=== PATIENT | female | born 2005 | race Two or more races ===

== ENCOUNTER → 2024-03-07 | Outpatient (CLI) | payer OTHER, SELFPAY ==
[2024-03-07 10:40] LABS: T4 (Thyroxine) 6.7 mcg/dL (4.5-10.9)
[2024-03-07 10:42] LABS: Vitamin D 25 Hydroxy Total 17.6 ng/mL (7.3-40.2)
[2024-03-07 10:45] LABS: Cardiac Risk Estimate 3.6 RATIO (3.7-5.6); Cholesterol 137 mg/dL (132-200); Free T4 (Free Thyroxine) 1.22 ng/dL (0.89-1.76); HDL Cholesterol 38 mg/dL (40-60); LDL Cholesterol,Calculated 80 mg/dL (0-130); Thyroid Stimulating Hormone 0.45 uIU/mL (0.55-4.78); Triglycerides 96 mg/dL (30-150)
== END | disposition home or self-care (01) ==
LOC: COPL 09:31
PROVIDERS: PCP Pediatrics; Referring Provider Pediatrics Pediatric Endocrinology; Visit Provider Pediatrics Pediatric Endocrinology
DX: E03.3 Postinfectious hypothyroidism (principal); E55.9 Vitamin D deficiency, unspecified; E78.5 Hyperlipidemia, unspecified
CPT/HCPCS: 36415; 80061; 82306; 84436; 84439; 84443; 84481

== ENCOUNTER → 2024-04-29 | Outpatient (CLI) | payer OTHER, SELFPAY ==
[2024-04-29 11:48] LABS: T4 (Thyroxine) 6.2 mcg/dL (4.5-10.9)
[2024-04-29 11:49] LABS: Free T4 (Free Thyroxine) 1.08 ng/dL (0.89-1.76); Thyroid Stimulating Hormone 1.89 uIU/mL (0.55-4.78)
== END | disposition home or self-care (01) ==
PROVIDERS: PCP Pediatrics Pediatric Endocrinology; Referring Provider Pediatrics Pediatric Endocrinology; Visit Provider Pediatrics Pediatric Endocrinology
DX: E03.3 Postinfectious hypothyroidism (principal)
CPT/HCPCS: 36415; 84436; 84439; 84443

== ENCOUNTER → 2024-06-08 | Outpatient (CLI) | payer OTHER, SELFPAY ==
--- NOTE | 2024-06-08 | XR_ITS ---
Examination: Pelvic ultrasound, transabdominal, complete Technique: Transabdominal ultrasound of the pelvis performed using grayscale imaging Date and time of exam: June 08, 2024 1255 hours INDICATIONS: Pelvic pain beginning 4 weeks ago FINDINGS: Uterus 7.2 cm endometrial stripe 0.8 cm No uterine mass or intrauterine gestation Right ovary 2.9 cm arterial flow Left ovary 3.4 cm arterial flow IMPRESSION: Negative study
--- NOTE | 2024-06-08 | XR_ITS ---
Examination: Abdomen AP single view Technique: AP portable supine abdomen, single view Exam date and time: June 08, 2024 1241 hours INDICATIONS: Constipation one month. FINDINGS: Large amounts of stool in the right and transverse colon No obstruction No free air IMPRESSION: Large amounts of stool in the right and transverse colon
[2024-06-08 13:46] LABS: HCG,Qualitative Serum Negative
[2024-06-08 14:41] LABS: Urea Breath Test Negative (Negative)
== END | disposition home or self-care (01) ==
LOC: CDIM 12:10
PROVIDERS: PCP Family Medicine; Referring Provider Nurse Practitioner Family; Visit Provider Nurse Practitioner Family
DX: K59.00 Constipation, unspecified (principal); K63.89 Other specified diseases of intestine
CPT/HCPCS: 36415; 74018; 76856; 83013; 83014; 84703

== ENCOUNTER 2024-06-14 11:13 | Inpatient (IN) | payer OTHER, SELFPAY ==
[2024-06-14 11:14] VITALS: BMI 28.1
[2024-06-14 11:25] VITALS: BP 117/78; PULSE 120; RESP 18; TEMP 38.2; O2SAT 99
--- NOTE | 2024-06-14 11:34 | XR_ITS ---
Examination: CT abdomen with intravenous contrast CT pelvis with intravenous contrast 2-D coronal reconstructions 2-D sagittal reconstructions Date and time of exam:June 14, 2024 1439 hours INDICATIONS: Generalized abdominal pain with nausea vomiting diarrhea beginning 2 months ago. CTDI: vol (mGy) 9.26 DLP: (mGycm) 528 Technique: Multiple axial sections of the abdomen and pelvis have been obtained. 64 slice high-resolution scanner used. 3 mm axial sections have been obtained, post intravenous injection 60 cc [id number] 2-D sagittal, coronal reconstructions obtained. Low dose protocols were performed. One or more of the following dose reduction techniques were used; automated exposure control, adjustment of the mA and/or KV according to patient size, use of iterative reconstruction technique. Findings: No focal liver or splenic lesions Contracted gallbladder No pancreatic mass No renal or ureteral calculi Aorta normal size The entire colon shows wall thickening and hyperemia Appendix is diagnostically visualized No bowel obstruction Small fat-containing umbilical hernia No pelvic mass Bladder intact Intact osseous structures IMPRESSION: Diffuse fairly severe nonspecific colitis pattern, differential would include ulcerative colitis, Crohn's disease
--- NOTE | 2024-06-14 11:36 | EDRME_ITS ---
Rapid Medical Screening Exam [facility] Arrival date/time: 06/14/24 11:13 18-year-old female presents to the emergency department today for complaint of a 1 month history of abdominal pain and intermittent bouts of diarrhea and constipation. Patient notably febrile and tachycardic Chief Complaint: Abdominal Pain Vital signs: Vital Signs Temperature 100.7 F H 06/14/24 11:25 Pulse Rate 120 H 06/14/24 11:25 Respiratory Rate 18 06/14/24 11:25 Blood Pressure 117/78 06/14/24 11:25 Pulse Oximetry (%) 99 06/14/24 11:25 Oxygen Delivery Method Room Air 06/14/24 11:25
[2024-06-14 12:01] LABS: Basophils # (Auto) 0.1 Thou/mm3 (0.0-0.2); Basophils % (Auto) 1 % (0-2.5); Eosinophils % (Auto) 9 % (0-10); Hematocrit 28.7 % (36.0-46.0); Immature Granulocytes % (Auto) 1 % (0-0); Immature Granulocytes Auto 0.07 Thou/mm3 (0.00-0.00); Lymphocytes % (Auto) 18 % (10-50); Mean Corpuscular HGB Conc 31.4 g/dl (31.0-37.0); Mean Corpuscular Hemoglobin 21.9 pg (25.0-35.0); Mean Corpuscular Volume 70 fL (80-100); Monocytes % (Auto) 9 % (0-12); Neutrophils % (Auto) 63 % (37-80); Nucleated Red Blood Cell % 0 /100 WBC (0); Platelet Count 562 Thou/mm3 (140-440); RDW Standard Deviation 45.4 fL (36.4-46.3); Red Blood Count 4.11 Miln/mm3 (4.00-5.20); White Blood Count 11.1 Thou/mm3 (4.5-11.0)
[2024-06-14 12:24] LABS: Alanine Aminotransferase 15 U/L (10-49); Albumin, Serum 4.4 gm/dL (3.5-5.0); Albumin/Globulin Ratio 1.4 (1.2-2.2); Alkaline Phosphatase 63 U/L (46-116); Anion Gap 7 (7-16); Aspartate Amino Transferase 12 U/L (0-34); Bilirubin,Total 0.6 mg/dL (0.3-1.2); Blood Urea Nitrogen < 5 mg/dL (9-23); Calcium 8.8 mg/dL (8.3-10.6); Calcium (Corrected) 8.8 mg/dL (8.5-10.1); Carbon Dioxide 26.6 mMol/L (20.0-31.0); Chloride 100 mMol/L (98-107); Globulin 3.2 gm/dL (2.3-3.5); Glucose 102 mg/dL (74-106); Lipase 25 U/L (12-53); Osmolality,Calculated 265 (275-295); Potassium 3.8 mMol/L (3.4-5.1); Sodium 134 mMol/L (136-145); Total Protein 7.6 gm/dL (5.7-8.2)
[2024-06-14 12:28] VITALS: TEMP 38.2
[2024-06-14] MEDS: ACETAMINOPHEN 500 MG TABLET 1000 MG PO (12:28)
[2024-06-14] MEDS: ONDANSETRON ODT 4 MG TABRAP PO (12:32)
[2024-06-14 12:36] LABS: BUN/Creatinine Ratio 6 Ratio (12-20); Creatinine (Component) 0.8 mg/dL (0.6-1.3); Estimated Creatinine Clearance 107.7 mL/min (>60); Procalcitonin 0.09 ng/ml (0.0-0.49); eGFR > 60 See Note
[2024-06-14 13:10] LABS: Collection Type, Urine Clean Catch
[2024-06-14 13:33] LABS: HCG Qualitative,Urine Negative
[2024-06-14 13:35] LABS: Bacteria,Urine Rare; Bilirubin,Urine Negative (Negative); Blood,Urine Negative (Negative); Clarity,Urine Clear (Clear/Hazy); Color,Urine Lt-Yellow (Lt Yel-Yel); Glucose, Urine Negative (Negative); Ketones,Urine Negative (Negative); Leukocyte Esterase,Urine Negative (Negative); Nitrite,Urine Negative (Negative); Protein,Urine Negative (Neg - Trace); RBC,Urine 2 /hpf (0-3); Specific Gravity,Urine 1.008 (1.001-1.035); Squamous Epithelial Cell,Urine < 1 /hpf (0-5); Urobilinogen,Urine Negative mg/dL (0.0-1.0); WBC,Urine 1 /hpf (0-5)
[2024-06-14 14:26] VITALS: BP 102/71; PULSE 97; RESP 16; TEMP 37.5; O2SAT 99
[2024-06-14] MEDS: SODIUM CHLORIDE 0.9% 1000 ML 1,000 ML 999 ML IV (14:30)
--- NOTE | 2024-06-14 15:53 | PD.EDABDPN ---
ED Abdominal Pain RME/HPI General Chief Complaint: Abdominal Pain Stated complaint: ABD. PAIN WITH VOMITING Time seen by provider: 06/14/24 15:24 Arrival date/time: 06/14/24 11:13 18-year-old female presents to the emergency department today for complaint of a 1 month history of abdominal pain and intermittent bouts of diarrhea and constipation. Patient notably febrile and tachycardic. There are no other associated symptoms or aggravating factors no other modifying factors, patient denies taking medication before coming to ER today Limitations: no limitations RME / HPI RME / HPI narrative: 06/14/24 11:13 18-year-old female presents to the emergency department today for complaint of a 1 month history of abdominal pain and intermittent bouts of diarrhea and constipation. Patient notably febrile and tachycardic Related Data Allergies Allergy/AdvReac Type Severity Reaction Status Date / Time No Known Allergies Allergy Verified 06/14/24 11:18 Review of Systems Review of Systems Systems Reviewed: All systems reviewed, normal except as documented Constitutional Constitutional: Reports system reviewed and no additional complaints, except as documented, Denies fever(s) and Denies headache(s) Eyes Eyes: Reports system reviewed and no additional complaints, except as documented and Denies blurry vision ENT Ears, Nose, Mouth, and Throat: Reports system reviewed and no additional complaints, except as documented, Denies headache(s), Denies nasal congestion and Denies nasal discharge Cardiovascular Cardiovascular: Reports system reviewed and no additional complaints, except as documented, Denies chest pain and Denies dyspnea Respiratory Respiratory: Reports system reviewed and no additional complaints, except as documented, Denies chest congestion, Denies cough and Denies dyspnea Gastrointestinal Gastrointestinal: Reports system reviewed and no additional complaints, except as documented, Reports abdominal pain, Reports hematochezia, Reports loose stools and Reports nausea Integumentary/Breasts Skin/Breast: Reports system reviewed and no additional complaints, except as documented and Denies rash Neurologic Neurologic: Reports system reviewed and no additional complaints, except as documented, Reports as per HPI and Denies headache(s) Past Medical History Past Medical History CARDIAC: Negative Cardiac Disorders RESPIRATORY: Negative Asthma GENITOURINARY: Negative Renal Disease ENDOCRINE: Negative Diabetes Mellitus Type 2 HEMATOLOGIC: Negative Sickle Cell Disease Social History SMOKING STATUS: Never smoker ED Exam General Limitations: Present no limitations General appearance: Present alert and in no apparent distress Head Head exam: Present atraumatic Eye Eye exam: Present normal appearance, PERRL and EOMI ENT ENT exam: Present normal exam, normal oropharynx and mucous membranes moist Neck Neck exam: Present normal inspection, full ROM and trachea midline Chest Chest inspection: Present normal inspection and symmetric chest wall rise Respiratory Respiratory exam: Present normal lung sounds bilaterally Cardiovascular Cardiovascular exam: Present regular rate, normal rhythm and normal heart sounds Abdominal Exam Abdominal exam: Present soft, tenderness (Nonspecific generalized abdominal) and normal bowel sounds; Absent distention, guarding, rebound or rigidity Extremities Exam Extremities exam: Present normal inspection and full ROM Back Exam Back exam: Present normal inspection and full ROM Neurological Exam Neurological exam: Present alert, oriented X3 and CN II-XII intact Psychiatric Psychiatric exam: Present normal affect and normal mood Skin Skin exam: Present warm, dry, intact and normal color Course Quality Measures none Orders Category Date Time Status COVID-19 Screening Questionnaire NOW Care 06/14/24 15:[address] Screening NOW Care 06/14/24 11:35 Active Decision to Admit X1 Care 06/14/24 15:49 Active Insert IV NOW Care 06/14/24 11:36 Active Consult to Gastroenterology Stat Cons 06/14/24 15:[address] abdomen pelvis w con Stat Exams 06/14/24 11:34 Completed Blood Culture (Lab) Stat Lab 06/14/24 11:40 Received C-Reactive Protein Stat Lab 06/14/24 11:45 Completed CBC Stat Lab 06/14/24 11:45 Completed Comprehensive Metabolic Panel Stat Lab 06/14/24 11:45 Completed HCG Qualitative,Urine Stat Lab 06/14/24 13:02 Completed Lactic Acid [Lactate (Lactic Acid)] Stat Lab 06/14/24 11:45 Completed Lipase Stat Lab 06/14/24 11:45 Completed Procalcitonin Stat Lab 06/14/24 11:45 Completed Stool Culture Stat Lab 06/14/24 11:35 Ordered Stool for WBCs Stat Lab 06/14/24 11:35 Ordered Urinalysis Stat Lab 06/14/24 13:02 Completed Urine Culture Stat Lab 06/14/24 13:02 Received c diff [Clostridium Difficile PCR] Stat Lab 06/14/24 Ordered Acetaminophen Tab [Tylenol ES Tab] Med 06/14/24 11:34 Discontinued 1,000 mg PO X1 ONE Ondansetron Odt [Zofran Odt] Med 06/14/24 12:29 Discontinued 4 mg PO X1 ONE Sodium Chloride 0.9% 1000 ml [Ns] 1,000 ml Med 06/14/24 11:34 Discontinued IV 999 mls/hr Vital Signs Vital signs: Vital Signs Temperature 100.7 F H 06/14/24 11:25 Pulse Rate 120 H 06/14/24 11:25 Respiratory Rate 18 06/14/24 11:25 Blood Pressure 117/78 06/14/24 11:25 Pulse Oximetry (%) 99 06/14/24 11:25 Oxygen Delivery Method Room Air 06/14/24 11:25 O2 saturation were 99% room air with normal limit Abdominal Pain MDM MDM Narrative MDM Narrative:: 18-year-old female presents to the emergency department today for complaint of a 1 month history of abdominal pain and intermittent bouts of diarrhea and constipation. Patient notably febrile and tachycardic. There are no other associated symptoms or aggravating factors no other modifying factors, patient denies taking medication before coming to ER today On exam despite the patient being tachycardic and febrile patient does not appear toxic. Lab work and imaging obtained patient hemoglobin is 9.0 CT scan consistent with diffuse colitis differentials including but not limited to Crohn's disease. Consultation: I spoke with Dr. Vera asked if the patient be admitted and he will consult on an inpatient basis 1555 PM: I spoke with Dr. salas who agrees to admit the patient I spoke with the residents inform them they should contact Dr. Vera for further orders Patient data External records reviewed:: [facility] previous records Clinical information provided by:: patient Social determinants that could affect healthcare access:: none Patient has the following chronic illnesses:: None How is presenting disease/condition affected by chronic disease/condition?: no chronic disease Evaluation data The following diagnostics were reviewed and interpreted by me:: lab results and radiology exam(s) Lab and/or radiology exams considered but not ordered:: Labs radiology obtain Interpretation Summary: Reviewed by me Medications / Prescriptions Medications or Prescriptions considered but not ordered:: Given Medication administrations:: Medication Administration History Acetaminophen (Acetaminophen 325 Mg Tablet) 650 mg PO Q6H PRN PRN Reason: Fever >101.5, PAIN 1-3 Stop: 07/14/24 16:28 Sodium Chloride (Ns) 1,000 mls @ 75 mls/hr IV .[id number] [facility] Stop: 07/14/24 16:29 Last Admin: 06/14/24 16:50 Dose: 75 mls/hr Documented By: PARIS Metronidazole (Flagyl 500 Mg Iv) 500 mg in 100 mls @ 200 mls/hr IV Q8HR [facility] Stop: 06/21/24 16:43 Ceftriaxone Sodium 2 gm/ (Sodium Chloride) 50 mls @ 100 mls/hr IV QDAY [facility] Stop: 06/21/24 16:44 Levothyroxine Sodium (Levothyroxine Sodium 100 Mcg Tablet) 100 mcg PO ACBR [facility] Stop: 07/15/24 05:59 Ondansetron HCl (Ondansetron Inj 2 Mg/Ml Inj 2 Ml) 4 mg IV Q6H PRN; Protocol PRN Reason: NAUSEA OR VOMITING Stop: 07/14/24 16:28 Pantoprazole Sodium (Pantoprazole Inj 40 Mg Vial) 40 mg IVP QDAY [facility] Stop: 07/15/24 08:59 Discontinued Medications Acetaminophen (Acetaminophen 500 Mg Tablet) 1,000 mg PO X1 ONE Stop: 06/14/24 11:35 Last Admin: 06/14/24 12:28 Dose: 1,000 mg Documented By: JESICA Sodium Chloride (Ns) 1,000 mls @ 999 mls/hr IV .Q1H1M ONE Stop: 06/14/24 12:34 Last Infusion: 06/14/24 15:37 Dose: Infused Documented By: Admin: 06/14/24 14:30 Dose: 999 mls/hr Documented By: PARIS Ondansetron HCl (Ondansetron Odt 4 Mg Tabrap) 4 mg PO X1 ONE; Protocol Stop: 06/14/24 12:30 Last Admin: 06/14/24 12:32 Dose: 4 mg Documented By: JESICA Polyethylene Glycol/Electrolytes (Na Styles/Nahco3/Nino/Peg (Golytely) 4,000 Ml Btl) 4,000 ml PO X1 ONE Stop: 06/14/24 16:34 Given Consultations Consultation(s) initiated? (list below): Yes Consultation #1 (Physician, Specialty, Details): Dr. Vera GI specialist Diagnosis Differential diagnosis abdominal pain: abdominal pain, acute appendicitis, gastroenteritis, pancreatitis and small bowel obstruction Most likely diagnosis given after review of the tests above:: Abdominal pain, colitis, blood in stool Admission Indicated Admission indicated?: indicated Admission Request Was there a request for admission?: Yes Admission Attestation Admission request attestation: Discussed case with [] from Hospitalist service regarding admission. Discussed patients ED course, exam findings, labs, and radiology results. The Hospitalist [agrees,declines] to accept the patient for admission. Disposition Plan Disposition Plan: Admit Discharge Plan Plan Patient Disposition: Admit Acute Care w/in Hospital Disposition Comment: Stable Problem List Clinical Impression: Abdominal pain, Blood in stool, Hemoglobin low, Diarrhea, Colitis PA/DIET TECHNICIAN REGISTERED Supervising Physician PA/DIET TECHNICIAN REGISTERED Supervising Physician: Dr crow
--- NOTE | 2024-06-14 16:40 | ESHP_ITS ---
<Statement entered by Onelia Davis MD - 06/19/24 15:39> I reviewed above note and agree with findings and plans. I have also personally examined the patient with medicine team and went over assessment and plan with medical team including contracts intern and resident physician. <Statement entered by Clay Fraga MD - 06/19/24 08:42> Senior Resident Attestation: I supervised/discussed management plan with contracts intern physician Dr. Alaniz, and was involved in the care of this patient. I personally saw and examined the patient and discussed the assessment and plan with the entire medicine team, including my attending. I agree with the assessment and plan as documented. Patient is a 18 years old female with PMH of hypothyroidism presented to the ED complaining of abdominal pain and bloody diarrhea ongoing for the past month and was admitted for IBD work up, GI was consulted. Patient's care was discussed with attending physician, Dr. Davis. Clay Fraga MD PGY-2. Documentation for date of: 06/14/24 HPI History of Present Illness History of present illness: Ms. Bullock is a [id number] with a past medical history significant for hypothyroidism who presents to the Emergency Department with complaints of abdominal pain and bloody diarrhea ongoing for the past month. She reports that her symptoms began with intermittent episodes of bloody diarrhea, which were subsequently followed by diffuse abdominal pain. She states that the symptoms have progressively worsened, with increased severity noted today. Over the course of the past month, she has experienced an unintentional weight loss of approximately 8 pounds. She denies nausea or vomiting but reports intermittent headaches that are relieved with dyuy-emb-gxkvnhz medications. She denies any prior similar episodes and affirms that these symptoms are new and began approximately one month ago. She reports no history of fever, though she has occasionally noticed night sweats. She denies chest pain, palpitations, dizziness, or syncope. The abdominal pain is described as diffuse and non- localized. She has not yet consulted a primary care provider for her current symptoms. However, she does report a history of chronic constipation for which she uses lactulose and MiraLAX. ED course In the ED blood pressure is 117/78, pulse 120, temperature is 100.7, patient saturating on room air Significant labs include WBC 11.1, hemoglobin 9.0, hematocrit 28.7, MCV 70, MCH 21.9, platelet 562, sodium 134, C-reactive protein 5.[address] of abdomen pelvis shows diffuse a fairly severe nonspecific colitis pattern In the ED patient was given 1 L bolus of fluids and Tylenol 1000 mg p.o. as well as Zofran x 1. ED placed a consult to Dr. Vera who has plans to perform colonoscopy and EGD PMH: Hypothyroidism PSH: None SH: none Home Meds: Levothyroxine 100mcg Exam Vital Signs Temp Pulse Resp BP Pulse Ox O2 Del Method 99.5 F 97 16 102/71 99 Room Air 06/14/24 14:06/14/24 14:06/14/24 14:06/14/24 14:06/14/24 14:06/14/24 14:26 Narrative Exam GENERAL: A&Ox3 . Awake, young cooperative female, Not in acute distress NEURO: no focal neurological deficits noted HEENT: Atraumatic, Normocephalic. mucous membranes moist. Eyes open, symmetrical, & clear HEART: Normal Heart Sounds LUNGS: Clear to auscultation with no wheezing or crackles. ABDOMEN: soft, non-distended, mild tender diffusely, bowel sounds heard, no guarding or rebound tenderness SKIN: No Rash or ecchymoses EXTREMITIES: No edema, tenderness, able to move all 4 extremities, pedal pulses palpated Results: Labs 06/17/24 04:58 06/17/24 04:58 Labs: Short CBC 06/14/24 Range/Units 11:45 WBC 11.1 H (4.5-11.0) Thou/mm3 Hgb 9.0 L (12.0-16.0) g/dL Hct 28.7 L (36.0-46.0) % Plt Count 562 H (140-440) Thou/mm3 BMP 06/14/24 11:45 Sodium 134 L Potassium 3.8 Chloride 100 Carbon Dioxide 26.6 BUN < 5 L Creatinine 0.8 Glucose 102 Calcium 8.8 Liver Function 06/14/24 Range/Units 11:45 Total Bilirubin 0.6 (0.3-1.2) mg/dL AST 12 (0-34) U/L ALT 15 (10-49) U/L Alkaline Phosphatase 63 (46-116) U/L Albumin 4.4 (3.5-5.0) gm/dL Urine 06/14/24 Range/Units 13:02 Urine Color Lt-Yellow (Lt Yel-Yel) Urine Clarity Clear (Clear/Hazy) Urine pH 6.0 (5.0-7.0) Ur Specific [place] 1.008 (1.001-1.035) Urine Protein Negative (Neg - Trace) Urine Glucose (UA) Negative (Negative) Quality Measures Quality Measures none Medications Home Medications and Allergies Allergies Allergy/AdvReac Type Severity Reaction Status Date / Time No Known Allergies Allergy Verified 06/14/24 11:18 Visit Medications Acetaminophen (Acetaminophen 325 Mg Tablet) 650 mg PO Q6H PRN PRN Reason: Fever >101.5, PAIN 1-3 Stop: 07/14/24 16:28 Sodium Chloride (Ns) 1,000 mls @ 75 mls/hr IV .[id number] [facility] Stop: 07/14/24 16:29 Levothyroxine Sodium (Levothyroxine Sodium 100 Mcg Tablet) 100 mcg PO QDAY [facility] Stop: 07/15/24 08:59 Ondansetron HCl (Ondansetron Inj 2 Mg/Ml Inj 2 Ml) 4 mg IV Q6H PRN; Protocol PRN Reason: NAUSEA OR VOMITING Stop: 07/14/24 16:28 Pantoprazole Sodium (Pantoprazole Inj 40 Mg Vial) 40 mg IVP QDAY [facility] Stop: 07/15/24 08:59 Discontinued Medications Acetaminophen (Acetaminophen 500 Mg Tablet) 1,000 mg PO X1 ONE Stop: 06/14/24 11:35 Last Admin: 06/14/24 12:28 Dose: 1,000 mg Sodium Chloride (Ns) 1,000 mls @ 999 mls/hr IV .Q1H1M ONE Stop: 06/14/24 12:34 Last Infusion: 06/14/24 15:37 Dose: Infused Ondansetron HCl (Ondansetron Odt 4 Mg Tabrap) 4 mg PO X1 ONE; Protocol Stop: 06/14/24 12:30 Last Admin: 06/14/24 12:32 Dose: 4 mg Polyethylene Glycol/Electrolytes (Na Styles/Nahco3/Nino/Peg (Golytely) 4,000 Ml Btl) 4,000 ml PO X1 ONE Stop: 06/14/24 16:34 Assessment & Plan Plan Ms. Bullock is a [id number] with a past medical history significant for hypothyroidism who presents to the Emergency Department with complaints of abdominal pain and bloody diarrhea ongoing for the past month. She reports that her symptoms began with intermittent episodes of bloody diarrhea, which were subsequently followed by diffuse abdominal pain. She states that the symptoms have progressively worsened, with increased severity noted today. Over the course of the past month, she has experienced an unintentional weight loss of approximately 8 pounds. #Diffuse colitis with bloody diarrhea #Concerning for IBD #Microcytic anemia - Patient complains of abdominal pain with bloody diarrhea, in the ER patient is febrile, weight loss and WBC is 11.1 - Hemoglobin 9.0, hematocrit 28.7, MCV 70 CT of the abdomen pelvis: Diffuse fairly severe nonspecific colitis pattern Plan: -GI specialist Dr. Vera consulted, appreciate recommendations - N.p.o. for EGD and colonoscopy GoLytely prep ordered - As needed pain control with Tylenol - Zofran as needed - Pantoprazole ordered -Rocephin plus Flagyl started 06/14- -iron panel plus ferritin ordered for morning labs -Maintenance fluids ordered as patient is n.p.o. -will continue to monitor daily CBC #Hypothyroidism - Resumed home levothyroxine 100 mcg - TSH ordered for a.m. labs Health Maintenance Disposition: Medsurg for colonoscopy and EGD DVT Prophylaxis: SCD QSHIFT GI Prophylaxis: Pantoprozol-40 IV Qday Diet: NPO for colonoscopy and EGD Lines: Peripheral lines Code status: Full Assessment and plan discussed with my senior resident Dr. Fraga & attending physician Dr. Ryan Alaniz (PGY-1)- Internal medicine resident
[2024-06-14] MEDS: SODIUM CHLORIDE 0.9% 1000 ML 1,000 ML 75 ML IV (16:50)
[2024-06-14 18:25] VITALS: BP 99/65; PULSE 82; RESP 17; RESP 18; TEMP 37.3; O2SAT 99
--- NOTE | 2024-06-14 18:31 | PC.NURSE ---
nurse to nurse verbal report given to Madhavi. Patient will be transported to [facility] room 369. No questions or concerns at this time.
--- NOTE | 2024-06-14 18:55 | PC.NURSE ---
patient transferred to [facility] via wheelchair by staff at 1856. Accompanied by both parents.
[2024-06-14] MEDS: cefTRIAXone 2 GM in SODIUM CHLORIDE 0.9% (Popper) 50 ML IV (19:31)
--- NOTE | 2024-06-14 19:39 | PC.NURSE ---
1832 Nurse report from ED nurse. Phone disconnected half way through report. Received another call at 18:42 to finish nurse to nurse report. Patient arrived on the floor 18:59. Hand off report given to Juan Francisco JAVIER.
[2024-06-14 19:45] LABS: Iron 12 mcg/dL (50-170); Percent Iron Saturation 3 % (20-55); Total Iron Binding Capacity 331 mcg/dL (250-425); Unsaturated Iron Binding 319 (225-295)
[2024-06-14 19:52] LABS: Ferritin 11 ng/mL (7.3-270.7)
[2024-06-14 20:00] VITALS: BP 102/77; PULSE 85; RESP 18; TEMP 36.7; O2SAT 100; BMI 29.5
[2024-06-14] MEDS: metroNIDAZOLE/NS 500 MG IVPB 500 MG/100 ML BAG 200 MG IV (20:33)
[2024-06-14] MEDS: NA SU/NAHCO3/KC/PEG (Golytely) 4,000 ML BTL 4000 ML PO (20:45)
--- NOTE | 2024-06-14 22:10 | PC.NURSE ---
RN was called into the room by pt who stated that she was unable to tolerate oral consumption of the 4 liter Golytely; previous this RN had informed pt that some pt's are not able to consume solution orally and that an NG Tube was an alternative available- although discomfort may occur at time of insertion and for the duration it is kept in place. Pt now requesting the tube to be placed. Informed pt that such intervention required a physician's order but would make such request to the physician tooth cutter contact wheel if needed. Encouraged pt to reattempt consuming solution orally after taking a half hour break. At which point, we would revisit the NG Tube alternative if pt was unable to.
--- NOTE | 2024-06-14 22:45 | PC.NURSE ---
Pt reports discomfort from drinking Golytely. Pt is requesting NG Tube placement for the administration of the remaining Golytely solution. Will inform MD of pt's request.
[2024-06-15] VITALS (13 sets, daily range): BP systolic 94–134; BP diastolic 55–82; PULSE 90–112; RESP 16–24; TEMP 36.2–37.7; O2SAT 94–100; BMI 29.5
--- NOTE | 2024-06-15 00:05 | PC.NURSE ---
NG Tube successfully inserted, 12 Fr, but upon completion of insertion, pt requested for the tube to be removed. Explained to pt that the difficult part was over with and that allowing placement of the tube we can administer the remaining Golytely. Pt refused to keep NG Tube in place; pt stated, no, I want it out . Proceeded to remove NG Tube per pt request. Informed pt and mother at bedside that the only way to proceed with the Colonoscopy would be for her to drink the remaining Golytely. Pt and mother both verbalized understanding.
[2024-06-15] MEDS: LEVOTHYROXINE SODIUM 100 MCG TABLET PO (05:30)
[2024-06-15] MEDS: SODIUM CHLORIDE 0.9% 1000 ML 1,000 ML 75 ML IV ×2 (05:30→21:34)
[2024-06-15] MEDS: metroNIDAZOLE/NS 500 MG IVPB 500 MG/100 ML BAG 200 MG IV ×3 (05:30→21:35)
[2024-06-15 06:16] LABS: Basophils # (Auto) 0.1 Thou/mm3 (0.0-0.2); Basophils % (Auto) 1 % (0-2.5); Eosinophils # (Auto) 0.7 Thou/mm3 (0.0-0.5); Eosinophils % (Auto) 6 % (0-10); Immature Granulocytes % (Auto) 1 % (0-0); Immature Granulocytes Auto 0.08 Thou/mm3 (0.00-0.00); Lymphocytes # (Auto) 1.6 Thou/mm3 (1.0-5.0); Lymphocytes % (Auto) 14 % (10-50); Mean Corpuscular HGB Conc 30.8 g/dl (31.0-37.0); Mean Corpuscular Hemoglobin 21.8 pg (25.0-35.0); Mean Corpuscular Volume 71 fL (80-100); Monocytes % (Auto) 9 % (0-12); Neutrophils # (Auto) 7.9 Thou/mm3 (1.8-7.7); Neutrophils % (Auto) 70 % (37-80); Nucleated Red Blood Cell % 0 /100 WBC (0); Platelet Count 478 Thou/mm3 (140-440); RDW Standard Deviation 46.9 fL (36.4-46.3); Red Blood Count 3.67 Miln/mm3 (4.00-5.20); White Blood Count 11.3 Thou/mm3 (4.5-11.0)
[2024-06-15 06:45] LABS: Alanine Aminotransferase 12 U/L (10-49); Albumin, Serum 3.5 gm/dL (3.5-5.0); Albumin/Globulin Ratio 1.2 (1.2-2.2); Alkaline Phosphatase 60 U/L (46-116); Anion Gap 10 (7-16); Aspartate Amino Transferase 13 U/L (0-34); BUN/Creatinine Ratio 7 Ratio (12-20); Bilirubin,Total 0.4 mg/dL (0.3-1.2); Blood Urea Nitrogen < 5 mg/dL (9-23); Calcium (Corrected) 8.4 mg/dL (8.5-10.1); Carbon Dioxide 24.4 mMol/L (20.0-31.0); Chloride 107 mMol/L (98-107); Creatinine (Component) 0.7 mg/dL (0.6-1.3); Estimated Creatinine Clearance 125.8 mL/min (>60); Glucose 98 mg/dL (74-106); Magnesium 1.8 mg/dL (1.6-2.6); Osmolality,Calculated 278 (275-295); Phosphorous 3.3 mg/dL (2.4-5.1); Potassium 3.6 mMol/L (3.4-5.1); Sodium 141 mMol/L (136-145); Thyroid Stimulating Hormone 7.99 uIU/mL (0.55-4.78); Total Protein 6.5 gm/dL (5.7-8.2); eGFR > 60 See Note
[2024-06-15 08:00] LABS: Stool for WBCs Negative (Negative)
[2024-06-15 08:33] LABS: Procalcitonin 0.09 ng/ml (0.0-0.49)
[2024-06-15 08:46] LABS: Clostridium Difficile PCR Negative (Negative)
[2024-06-15] MEDS: bisacodyL 5 MG TABEC 20 MG PO ×2 (08:59→12:58)
[2024-06-15] MEDS: PANTOPRAZOLE INJ 40 MG VIAL IVP (08:59)
[2024-06-15] MEDS: cefTRIAXone 2 GM in SODIUM CHLORIDE 0.9% (Popper) 50 ML IV (09:00)
[2024-06-15] MEDS: ACETAMINOPHEN 325 MG TABLET 650 MG PO (09:28)
--- NOTE | 2024-06-15 14:30 | PD.IMCONS ---
HPI Data of Consult Requesting Physician: Onelia Davis MD Primary Care Provider: Elisa Wood NP Consult Narrative History of present illness: Pt is a 18-year-old female with a past medical history significant for hypothyroidism with complaints of abdominal pain and bloody diarrhea ongoing for the past month. She reports that her symptoms began with intermittent episodes of bloody diarrhea, which were subsequently followed by diffuse abdominal pain. She states that the symptoms have progressively worsened, with increased severity noted today with weight loss. No acute distress. cc:: cc: Onelia Davis MD Review of Systems Review of Systems Narrative Review of Systems: reviewed Meds Home Medications and Allergies Allergies Allergy/AdvReac Type Severity Reaction Status Date / Time No Known Allergies Allergy Verified 06/14/24 11:18 Exam Vital Signs Temp Pulse Resp BP Pulse Ox O2 Del Method 99.9 F 112 H 17 111/77 94 L Room Air 06/15/24 08:00 06/15/24 08:00 06/15/24 08:00 06/15/24 08:00 06/15/24 08:00 06/15/24 08:00 Routine Abdominal Exam Comments: soft, tender mildly Results Labs 06/15/24 05:10 06/15/24 05:10 Labs: Short CBC 06/15/24 Range/Units 05:10 WBC 11.3 H (4.5-11.0) Thou/mm3 Hgb 8.0 L (12.0-16.0) g/dL Hct 26.0 L (36.0-46.0) % Plt Count 478 H D (140-440) Thou/mm3 BMP 06/15/24 05:10 Sodium 141 Potassium 3.6 Chloride 107 Carbon Dioxide 24.4 BUN < 5 L Creatinine 0.7 Glucose 98 Calcium 8.0 L Liver Function 06/15/24 Range/Units 05:10 Total Bilirubin 0.4 (0.3-1.2) mg/dL AST 13 (0-34) U/L ALT 12 (10-49) U/L Alkaline Phosphatase 60 (46-116) U/L Albumin 3.5 D (3.5-5.0) gm/dL Assessment and Plan Additional Assessment & Plan Additional Plan: 18-year-old female with a past medical history significant for hypothyroidism with complaints of abdominal pain and bloody diarrhea ongoing for the past month. She reports that her symptoms began with intermittent episodes of bloody diarrhea, which were subsequently followed by diffuse abdominal pain. She states that the symptoms have progressively worsened, with increased severity noted today with weight loss Fecal calprotectin EGD and colonoscopy Will follow based on results
--- NOTE | 2024-06-15 14:34 | PC.SS ---
Rounding note: Pt is a 18 yo female, who is pending a colonoscopy. At this time there is no d/c date.
--- NOTE | 2024-06-15 14:45 | PC.SS ---
1130-Bundle Tier And Labeler attempted to complete a face to face initial assessment with the pt; however, when entering the room, pts mother stated the pt was using the restroom and asked for privacy. Bundle Tier And Labeler was unable to complete the initial assessment. SS to complete initial assessment.
[2024-06-15 15:58] LABS: INR 1.1 (0.9-1.3); Prothrombin Time 12.2 Seconds (9.0-12.2)
--- NOTE | 2024-06-15 16:03 | ESPR_ITS ---
<Statement entered by Onelia Davis MD - 06/17/24 08:14> I reviewed above note and agree with findings and plans. I have also personally examined the patient with medicine team and went over assessment and plan with medical team including rn internship and resident physician. <Statement entered by Krishna Mcgraw MD - 06/16/24 06:15> patient seen an assessed at bedside this morning. patient states she is feeling better today compared to when she first came in. patient is taking go-lightly for colonoscopy later today. Dr. Vera following. case discussed with team. Krishna Mcgraw [id number] Documentation for date of: 06/15/24 Subjective Subjective Interval history: No acute overnight. Patient seen and examined at bedside this morning. Patient is undergoing GoLytely prep for colonoscopy scheduled today as well as EGD. Patient states that she has been bowel movements denies any melena or hematochezia. Patient also states her abdominal pain has mildly improved. Patient has no other complaints. TSH in a.m. labs 7.99 and we will increase her home dose of levothyroxine from 100-112.5 Iron panel is consistent with iron deficiency anemia. Patient will need to be started on ferrous sulfate every other day upon discharge. Patient may benefit from IV iron during hospitalization. Exam Vital Signs Temp Pulse Resp BP Pulse Ox O2 Del Method 97.1 F 92 18 110/71 97 Room Air 06/15/24 12:00 06/15/24 12:00 06/15/24 12:00 06/15/24 12:00 06/15/24 12:00 06/15/24 12:00 Narrative Exam GENERAL: A&Ox3 . Awake, young cooperative female, Not in acute distress NEURO: no focal neurological deficits noted HEENT: Atraumatic, Normocephalic. mucous membranes moist. Eyes open, symmetrical, & clear HEART: Normal Heart Sounds LUNGS: Clear to auscultation with no wheezing or crackles. ABDOMEN: soft, non-distended, mild tender diffusely, bowel sounds heard, no guarding or rebound tenderness SKIN: No Rash or ecchymoses EXTREMITIES: No edema, tenderness, able to move all 4 extremities, pedal pulses palpated Objective Labs 06/15/24 05:10 06/15/24 05:10 Labs: Laboratory Results - last 24 hr 06/14/24 06/15/24 06/15/24 11:45 01:00 05:10 WBC 11.3 H RBC 3.67 L Hgb 8.0 L Hct 26.0 L MCV 71 L MCH 21.8 L MCHC 30.8 L RDW Std Deviation 46.9 H Plt Count 478 H D Neut % (Auto) 70 Lymph % (Auto) 14 [place] % (Auto) 9 Eos % (Auto) 6 Baso % (Auto) 1 Neut # (Auto) 7.9 H Lymph # (Auto) 1.6 [place] # (Auto) 1.0 H Eos # (Auto) 0.7 H Baso # (Auto) 0.1 Immature Gran # (Auto) 0.08 H Absolute Nucleated RBC 0.00 Immature Gran % 1 H Nucleated RBC % 0 PT INR Sodium 141 Potassium 3.6 Chloride 107 Carbon Dioxide 24.4 Anion Gap 10 BUN < 5 L Creatinine 0.7 Estim Creat Clear Calc 125.8 eGFR > 60 BUN/Creatinine Ratio 7 L Glucose 98 Calculated Osmolality 278 Calcium 8.0 L Corrected Calcium 8.4 L Phosphorus 3.3 Magnesium 1.8 Iron 12 L TIBC 331 Iron Saturation 3 L Unsat Iron Binding 319 H Ferritin 11 Total Bilirubin 0.4 AST 13 ALT 12 Alkaline Phosphatase 60 Total Protein 6.5 Albumin 3.5 D Globulin 3.0 Albumin/Globulin Ratio 1.2 Procalcitonin 0.09 TSH 7.99 H Stool for White Cells Negative Stl C. diff Tox B Gene Negative 06/15/24 15:21 WBC RBC Hgb Hct MCV MCH MCHC RDW Std Deviation Plt Count Neut % (Auto) Lymph % (Auto) [place] % (Auto) Eos % (Auto) Baso % (Auto) Neut # (Auto) Lymph # (Auto) [place] # (Auto) Eos # (Auto) Baso # (Auto) Immature Gran # (Auto) Absolute Nucleated RBC Immature Gran % Nucleated RBC % PT 12.2 INR 1.1 Sodium Potassium Chloride Carbon Dioxide Anion Gap BUN Creatinine Estim Creat Clear Calc eGFR BUN/Creatinine Ratio Glucose Calculated Osmolality Calcium Corrected Calcium Phosphorus Magnesium Iron TIBC Iron Saturation Unsat Iron Binding Ferritin Total Bilirubin AST ALT Alkaline Phosphatase Total Protein Albumin Globulin Albumin/Globulin Ratio Procalcitonin TSH Stool for White Cells Stl C. diff Tox B Gene Quality Measures Quality Measures none Assessment & Plan Assessment Current Active Medications: Generic Name Dose Route Start Last Admin Trade Name Freq PRN Reason Stop Dose Admin Acetaminophen 650 mg 06/14/24 16:29 06/15/24 09:28 Acetaminophen 325 Mg Tablet PO 07/14/24 16:28 650 mg Q6H PRN Administration Fever >101.5, PAIN 1-3 Sodium Chloride 1,000 mls @ 75 mls/hr 06/14/24 16:30 06/15/24 05:30 Ns IV 07/14/24 16:29 75 mls/hr .[id number] ELBA Administration Metronidazole 500 mg in 100 mls @ 200 mls/hr 06/14/24 16:44 06/15/24 14:16 Flagyl 500 Mg Iv IV 06/21/24 16:43 200 mls/hr Q8HR ELBA Administration Ceftriaxone Sodium 2 gm/ 50 mls @ 100 mls/hr 06/14/24 16:45 06/15/24 09:00 Sodium Chloride IV 06/21/24 16:44 100 mls/hr QDAY ELBA Administration Levothyroxine Sodium 112 mcg 06/16/24 06:00 Levothyroxine Sodium 112 Mcg Tablet PO 07/16/24 05:59 ACBR ELBA Ondansetron HCl 4 mg 06/14/24 16:29 Ondansetron Inj 2 Mg/Ml Inj 2 Ml IV 07/14/24 16:28 Q6H PRN NAUSEA OR VOMITING Protocol Pantoprazole Sodium 40 mg 06/15/24 09:00 06/15/24 08:59 Pantoprazole Inj 40 Mg Vial IVP 07/15/24 08:59 40 mg QDAY ELBA Administration Plan Ms. Bullock is a 18-year-old female with a past medical history significant for hypothyroidism who presents to the Emergency Department with complaints of abdominal pain and bloody diarrhea ongoing for the past month. She reports that her symptoms began with intermittent episodes of bloody diarrhea, which were subsequently followed by diffuse abdominal pain. She states that the symptoms have progressively worsened, with increased severity noted today. Over the course of the past month, she has experienced an unintentional weight loss of approximately 8 pounds. #Diffuse colitis with bloody diarrhea #Concerning for IBD #Microcytic anemia - Patient complains of abdominal pain with bloody diarrhea, in the ER patient is febrile, weight loss and WBC is 11.1 - Hemoglobin 9.0, hematocrit 28.7, MCV 70 CT of the abdomen pelvis: Diffuse fairly severe nonspecific colitis pattern Plan: -GI specialist Dr. Vera consulted, appreciate recommendations - N.p.o. for EGD and colonoscopy GoLytely prep ordered - As needed pain control with Tylenol - Zofran as needed - Pantoprazole ordered -Rocephin plus Flagyl started 06/14- -Maintenance fluids ordered as patient is n.p.o. -will continue to monitor daily CBC #Iron deficiency anemia -Hemoglobin 8.0, hematocrit 26.0, MCV 71 -Iron panel: Iron 12, TIBC 331, iron saturation 3, unsaturated iron binding 319, ferritin 11 -Patient will need to take ferrous sulfate every other day on discharge #Hypothyroidism - TSH 7.99 therefore increased home levothyroxine to 112.5mcg Health Maintenance Disposition: Medsurg for colonoscopy and EGD DVT Prophylaxis: SCD QSHIFT GI Prophylaxis: Pantoprozol-40 IV Qday Diet: NPO for colonoscopy and EGD Lines: Peripheral lines Code status: Full Assessment and plan discussed with my senior resident Dr. Mcgraw & attending physician Dr. Ryan Alaniz (PGY-1)- Internal medicine resident
[2024-06-15] MEDS: RINGERS LACTATED 1000 ML 1,000 ML 125 ML IV (18:12)
--- NOTE | 2024-06-15 19:10 | SUR.PHASEI ---
pt received to [facility]. sleepy but arousable. vss. breathing even and unlabored. report from dr welch and nurse avelina.
--- NOTE | 2024-06-15 19:45 | SUR.PHASEI ---
pt transported to room via gurney. vss. breathing even and unlabored. pt awake and oriented. no co pain or nausea. passing gas. report called to [facility].
[2024-06-15 22:21] LABS: Hepatitis A Antibody IgM Non Reactive (Non React); Hepatitis B Core Antibody IgM Non Reactive (Non React); Hepatitis B Surface Antigen Non Reactive (Non React); Hepatitis C Antibody Non Reactive (Non React)
[2024-06-16] VITALS (9 sets, daily range): BP systolic 106–112; BP diastolic 59–68; PULSE 75–107; RESP 16–99; TEMP 36.2–37.1; O2SAT 97–99; BMI 29.5
[2024-06-16 00:15] LABS: Hematocrit 26.3 % (36.0-46.0)
[2024-06-16 00:26] LABS: Hemoglobin 8.2 g/dL (12.0-16.0)
[2024-06-16] MEDS: HYDROcodone/APAP 5/325 TABLET 1 TAB PO (00:38)
[2024-06-16] MEDS: metroNIDAZOLE/NS 500 MG IVPB 500 MG/100 ML BAG 200 MG IV (05:22)
[2024-06-16] MEDS: MG HYD/AL HYD/SIME (Maalox Reg) SUSP 30 ML UDC PO (05:22)
[2024-06-16] MEDS: PANTOPRAZOLE INJ 40 MG VIAL IVP (05:24)
[2024-06-16] MEDS: LEVOTHYROXINE SODIUM 112 MCG TABLET PO (05:24)
[2024-06-16 05:44] LABS: HIV (1&2) Antibody Rapid Non-Reactive
[2024-06-16 05:58] LABS: Basophils # (Auto) 0.1 Thou/mm3 (0.0-0.2); Basophils % (Auto) 1 % (0-2.5); Eosinophils # (Auto) 0.8 Thou/mm3 (0.0-0.5); Eosinophils % (Auto) 9 % (0-10); Hematocrit 24.2 % (36.0-46.0); Immature Granulocytes % (Auto) 1 % (0-0); Immature Granulocytes Auto 0.08 Thou/mm3 (0.00-0.00); Lymphocytes # (Auto) 2.2 Thou/mm3 (1.0-5.0); Lymphocytes % (Auto) 26 % (10-50); Mean Corpuscular HGB Conc 31.4 g/dl (31.0-37.0); Mean Corpuscular Hemoglobin 21.8 pg (25.0-35.0); Mean Corpuscular Volume 70 fL (80-100); Monocytes # (Auto) 0.7 Thou/mm3 (0.0-0.8); Monocytes % (Auto) 8 % (0-12); Neutrophils % (Auto) 56 % (37-80); Nucleated Red Blood Cell % 0 /100 WBC (0); Platelet Count 436 Thou/mm3 (140-440); Quantiferon-TB* See Sep Rpt; RDW Standard Deviation 45.5 fL (36.4-46.3); Red Blood Count 3.48 Miln/mm3 (4.00-5.20); White Blood Count 8.8 Thou/mm3 (4.5-11.0)
[2024-06-16 06:06] LABS: Hemoglobin 7.6 g/dL (12.0-16.0)
[2024-06-16 06:42] LABS: Alanine Aminotransferase 9 U/L (10-49); Albumin, Serum 3.3 gm/dL (3.5-5.0); Albumin/Globulin Ratio 1.3 (1.2-2.2); Alkaline Phosphatase 57 U/L (46-116); Anion Gap 11 (7-16); Aspartate Amino Transferase < 10 U/L (0-34); BUN/Creatinine Ratio 7 Ratio (12-20); Bilirubin,Total 0.4 mg/dL (0.3-1.2); Blood Urea Nitrogen < 5 mg/dL (9-23); Calcium 7.9 mg/dL (8.3-10.6); Calcium (Corrected) 8.5 mg/dL (8.5-10.1); Chloride 108 mMol/L (98-107); Creatinine (Component) 0.7 mg/dL (0.6-1.3); Estimated Creatinine Clearance 125.8 mL/min (>60); Globulin 2.6 gm/dL (2.3-3.5); Glucose 97 mg/dL (74-106); Magnesium 1.8 mg/dL (1.6-2.6); Osmolality,Calculated 280 (275-295); Phosphorous 3.9 mg/dL (2.4-5.1); Potassium 3.3 mMol/L (3.4-5.1); Sodium 142 mMol/L (136-145); Total Protein 5.9 gm/dL (5.7-8.2); eGFR > 60 See Note
[2024-06-16] MEDS: cefTRIAXone 2 GM in SODIUM CHLORIDE 0.9% (Popper) 50 ML IV (08:47)
[2024-06-16] MEDS: POTASSIUM CHLORIDE 20 mEq TABCR 40 MEQ PO (08:47)
--- NOTE | 2024-06-16 09:41 | EKG_ITS ---
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
[2024-06-16 09:51] LABS: Sed Rate (ESR) 37 mm/hr (0-20)
[2024-06-16 09:55] LABS: C-Reactive Protein 6.5 mg/dL (0.0-0.9); Prealbumin < 5.0 mg/dL (10.0-40.0)
[2024-06-16] MEDS: ACETAMINOPHEN 325 MG TABLET 650 MG PO ×2 (10:07→20:53)
[2024-06-16] MEDS: predniSONE 20 MG TABLET 40 MG PO (10:08)
[2024-06-16] MEDS: ONDANSETRON INJ 2 MG/ML INJ 2 ML 4 MG IV (10:09)
--- NOTE | 2024-06-16 10:30 | PC.NURSE ---
Per pts family will like to hold off on iron for now made MD lynch aware. Education provided this morning in regards for the need and h/h levels by md Valdes.
[2024-06-16 11:53] LABS: Hematocrit 23.4 % (36.0-46.0)
[2024-06-16 12:09] LABS: Hemoglobin 7.4 g/dL (12.0-16.0)
--- NOTE | 2024-06-16 14:04 | PD.IMPROG ---
Documentation for date of: 06/16/24 Subjective Subjective Interval history: EGD showed GEJ polyp removed Colonoscopy UC vs. Crohn's colitis Exam Vital Signs Temp Pulse Resp BP Pulse Ox O2 Del Method 98.3 F 80 18 111/67 98 Room Air 06/16/24 12:00 06/16/24 12:00 06/16/24 12:00 06/16/24 12:00 06/16/24 12:00 06/16/24 12:00 Routine Abdominal Exam Comments: soft, mildly tender Objective Labs 06/16/24 10:40 06/16/24 04:50 Labs: Laboratory Results - last 24 hr 06/15/24 06/15/24 06/16/24 15:21 23:51 04:50 WBC 8.8 RBC 3.48 L Hgb 8.2 L 7.6 L Hct 26.3 L 24.2 L MCV 70 L MCH 21.8 L MCHC 31.4 RDW Std Deviation 45.5 Plt Count 436 D Neut % (Auto) 56 Lymph % (Auto) 26 [place] % (Auto) 8 Eos % (Auto) 9 Baso % (Auto) 1 Neut # (Auto) 5.0 Lymph # (Auto) 2.2 [place] # (Auto) 0.7 Eos # (Auto) 0.8 H Baso # (Auto) 0.1 Immature Gran # (Auto) 0.08 H Absolute Nucleated RBC 0.00 Immature Gran % 1 H Nucleated RBC % 0 ESR 37 H PT 12.2 INR 1.1 Sodium 142 Potassium 3.3 L Chloride 108 H Carbon Dioxide 23.0 Anion Gap 11 BUN < 5 L Creatinine 0.7 Estim Creat Clear Calc 125.8 eGFR > 60 BUN/Creatinine Ratio 7 L Glucose 97 Calculated Osmolality 280 Calcium 7.9 L Corrected Calcium 8.5 Phosphorus 3.9 Magnesium 1.8 Total Bilirubin 0.4 AST < 10 ALT 9 L Alkaline Phosphatase 57 C-Reactive Prot, Quant 6.5 H Total Protein 5.9 Albumin 3.3 L Globulin 2.6 Albumin/Globulin Ratio 1.3 Prealbumin < 5.0 L Hepatitis A IgM Ab Non Reactive Hep Bs Antigen Non Reactive Hep B Core IgM Ab Non Reactive Hepatitis C Antibody Non Reactive HIV 1&2 Antibody Rapid Non-Reactive 06/16/24 10:40 WBC RBC Hgb 7.4 L Hct 23.4 L MCV MCH MCHC RDW Std Deviation Plt Count Neut % (Auto) Lymph % (Auto) [place] % (Auto) Eos % (Auto) Baso % (Auto) Neut # (Auto) Lymph # (Auto) [place] # (Auto) Eos # (Auto) Baso # (Auto) Immature Gran # (Auto) Absolute Nucleated RBC Immature Gran % Nucleated RBC % ESR PT INR Sodium Potassium Chloride Carbon Dioxide Anion Gap BUN Creatinine Estim Creat Clear Calc eGFR BUN/Creatinine Ratio Glucose Calculated Osmolality Calcium Corrected Calcium Phosphorus Magnesium Total Bilirubin AST ALT Alkaline Phosphatase C-Reactive Prot, Quant Total Protein Albumin Globulin Albumin/Globulin Ratio Prealbumin Hepatitis A IgM Ab Hep Bs Antigen Hep B Core IgM Ab Hepatitis C Antibody HIV 1&2 Antibody Rapid Assessment & Plan A&P Narrative 18-year-old female with a past medical history significant for hypothyroidism with complaints of abdominal pain and bloody diarrhea ongoing for the past month. She reports that her symptoms began with intermittent episodes of bloody diarrhea, which were subsequently followed by diffuse abdominal pain. She states that the symptoms have progressively worsened, with increased severity noted today with weight loss Fecal calprotectin PPI bid Prednisone 40 mg once a day Follow gi thursday Follow labs and stool study Follow path Needs to repeat EGD in 8 weeks Needs biologics D/w family and pt and in agreement Time Spent With Patient Time: Total time spent is greater than 50% in coordination of care (as documented) at patient's floor/unit and/or counseling patient:
--- NOTE | 2024-06-16 14:19 | PD.RESPRO ---
Documentation for date of: 06/16/24 Subjective Subjective Interval history: Patient was seen examined at bedside this morning. Overnight patient had 1 bloody bowel movement. She underwent EGD and colonoscopy yesterday. EGD showed some gastritis with erythema, but no bleeding. Colonoscopy showed diffuse inflammation in the sigmoid colon, rectosigmoid colon, transverse colon, descending colon, and ascending colon. Patient's WBCs have not up trended and she has not spiked any fevers. Discontinue patient's Flagyl and will continue with Rocephin for now. GI specialist placed the patient on prednisone 40 mg daily until she's seen at his office and wanted patient to be started on diet which was started already. Will switch patient's Protonix to p.o. 40 twice daily. Possible discharge in the next 24 to 48 hours. Exam Vital Signs Temp Pulse Resp BP Pulse Ox O2 Del Method 98.3 F 80 18 111/67 98 Room Air 06/16/24 12:00 06/16/24 12:00 06/16/24 12:00 06/16/24 12:00 06/16/24 12:06/16/24 12:00 Narrative Exam General: A/O x3, no acute distress Eyes: PERRL, EOMI. Anicteric, vision grossly intact. Ears: No ear pain, no ear discharge, Hearing grossly intact. Nose: No nasal discharge. Mouth/Throat: Moist mucous membranes, no redness, no lesions. Neck: Neck supple, non-tender, no cervical lymphadenopathy. Lungs: Clear KEYUR to auscultation and percussion, No accessory muscle use. Cardio: Normal S1/S2, regular rhythm, no murmurs, no JVD Abdomen: Soft, tender in left side, no palpable masses, peristalsis present, no guarding or rebound. Extremities: Symmetrical, no significant deformities, no peripheral edema , non-tender, peripheral pulses presents. Skin: No rashes, no lesions, warm to touch. Neuro: No focal neurological deficits. motor and sensory intact Objective Labs 06/17/24 04:58 06/17/24 04:58 Labs: Laboratory Results - last 24 hr 06/15/24 06/15/24 06/16/24 15:21 23:51 04:50 WBC 8.8 RBC 3.48 L Hgb 8.2 L 7.6 L Hct 26.3 L 24.2 L MCV 70 L MCH 21.8 L MCHC 31.4 RDW Std Deviation 45.5 Plt Count 436 D Neut % (Auto) 56 Lymph % (Auto) 26 [place] % (Auto) 8 Eos % (Auto) 9 Baso % (Auto) 1 Neut # (Auto) 5.0 Lymph # (Auto) 2.2 [place] # (Auto) 0.7 Eos # (Auto) 0.8 H Baso # (Auto) 0.1 Immature Gran # (Auto) 0.08 H Absolute Nucleated RBC 0.00 Immature Gran % 1 H Nucleated RBC % 0 ESR 37 H PT 12.2 INR 1.1 Sodium 142 Potassium 3.3 L Chloride 108 H Carbon Dioxide 23.0 Anion Gap 11 BUN < 5 L Creatinine 0.7 Estim Creat Clear Calc 125.8 eGFR > 60 BUN/Creatinine Ratio 7 L Glucose 97 Calculated Osmolality 280 Calcium 7.9 L Corrected Calcium 8.5 Phosphorus 3.9 Magnesium 1.8 Total Bilirubin 0.4 AST < 10 ALT 9 L Alkaline Phosphatase 57 C-Reactive Prot, Quant 6.5 H Total Protein 5.9 Albumin 3.3 L Globulin 2.6 Albumin/Globulin Ratio 1.3 Prealbumin < 5.0 L Hepatitis A IgM Ab Non Reactive Hep Bs Antigen Non Reactive Hep B Core IgM Ab Non Reactive Hepatitis C Antibody Non Reactive HIV 1&2 Antibody Rapid Non-Reactive 06/16/24 10:40 WBC RBC Hgb 7.4 L Hct 23.4 L MCV MCH MCHC RDW Std Deviation Plt Count Neut % (Auto) Lymph % (Auto) [place] % (Auto) Eos % (Auto) Baso % (Auto) Neut # (Auto) Lymph # (Auto) [place] # (Auto) Eos # (Auto) Baso # (Auto) Immature Gran # (Auto) Absolute Nucleated RBC Immature Gran % Nucleated RBC % ESR PT INR Sodium Potassium Chloride Carbon Dioxide Anion Gap BUN Creatinine Estim Creat Clear Calc eGFR BUN/Creatinine Ratio Glucose Calculated Osmolality Calcium Corrected Calcium Phosphorus Magnesium Total Bilirubin AST ALT Alkaline Phosphatase C-Reactive Prot, Quant Total Protein Albumin Globulin Albumin/Globulin Ratio Prealbumin Hepatitis A IgM Ab Hep Bs Antigen Hep B Core IgM Ab Hepatitis C Antibody HIV 1&2 Antibody Rapid Quality Measures Quality Measures none Assessment & Plan Assessment Current Active Medications: Generic Name Dose Route Start Last Admin Trade Name Freq PRN Reason Stop Dose Admin Acetaminophen 650 mg 06/14/24 16:29 06/16/24 10:07 Acetaminophen 325 Mg Tablet PO 07/14/24 16:28 650 mg Q6H PRN Administration Fever >101.5, PAIN 1-3 Hydrocodone Bitart/Acetaminophen 1 tab 06/15/24 23:20 06/16/24 00:38 Hydrocodone/Apap 5/325 Tablet PO 06/20/24 23:19 1 tab Q6HR PRN Administration Pain 4-10 Sodium Chloride 1,000 mls @ 75 mls/hr 06/14/24 16:30 06/15/24 21:34 Ns IV 07/14/24 16:29 75 mls/hr .[id number] ELBA Administration Ferric Sodium Gluconate 125 mg 110 mls @ 110 mls/hr 06/16/24 10:00 06/16/24 14:05 / Sodium Chloride IV 07/16/24 09:59 Not Given QDAY ELBA Ceftriaxone Sodium/Dextrose 1 gm in 50 mls @ 100 mls/hr 06/17/24 09:00 Rocephin/D5w 1gm Iv Premix IV 06/24/24 08:59 QDAY ELBA Levothyroxine Sodium 112 mcg 06/16/24 06:00 06/16/24 05:24 Levothyroxine Sodium 112 Mcg Tablet PO 07/16/24 05:59 112 mcg ACBR ELBA Administration Ondansetron HCl 4 mg 06/14/24 16:29 06/16/24 10:09 Ondansetron Inj 2 Mg/Ml Inj 2 Ml IV 07/14/24 16:28 4 mg Q6H PRN Administration NAUSEA OR VOMITING Protocol Pantoprazole Sodium 40 mg 06/16/24 21:00 Pantoprazole 40 Mg Tablet PO 07/16/24 20:59 BID ELBA Prednisone 40 mg 06/16/24 09:30 06/16/24 10:08 Prednisone 20 Mg Tablet PO 07/16/24 09:29 40 mg QDAY ELBA Administration Plan 18-year-old female with past medical history of hypothyroidism was admitted to the hospital 06/14/2024 due to diffuse colitis with hematochezia and concerns for IBD. #Diffuse colitis #Hematochezia #IBD? #Gastritis Patient was having 1 month of abdominal pain with diarrhea that was mostly bloody prior to coming in. Patient had 1 more episode of bloody diarrhea last night. Colonoscopyshowed diffuse inflammation in the sigmoid colon, rectosigmoid colon, transverse colon, descending colon, and ascending colon. EGD showed some gastritis with erythema, but no bleeding. Plan: Protonix 40 mg twice daily Prednisone 40 mg daily until she is seen by GI specialist as an outpatient Pending stool cultures, Helicobacter pylori antigen in the stool, C. difficile, calprotectin in the stool, and blood cultures Pending pathology report GI specialist consulted, appreciate recommendations #Iron deficiency anemia Hemoglobin today 7.6 iron on repeat was 7.4 Could be due to iron deficiency as well as blood loss in the stool Plan: GI specialist ordered IV Ferrlecit 125 mg IV daily Patient will most likely benefit from ferrous sulfate every other day Will repeat hemoglobin if patient does have another bloody bowel movement #UTI Patient's UA was positive Urine Cx grew GNR Plan: Continue Rocephin #Hypothyroidism Patient's TSH came back elevated at 7.99 Plan: Continue levothyroxine 112 mcg Disposition: Patient admitted for possible IBD Diet: vegetarian GI prophylaxis: protonix DVT prophylaxis: not indicated in the setting of hematochezia Code: full code Case disclosed with Attending Dr. Alisson Jaime PGY1 Attending Provider Attestation/Addendum I reviewed labs, imaging, EKG, home medications and prior available records. Face to face evaluation was performed by me. I have personally examined the patient and discussed assessment and plan with the IM team. I reviewed the resident note and agree with the plan with exceptions as below. Lower GI bleed Possible Crohn's disease Acute esophagitis/gastritis Colitis Acute UTI Status post EGD that showed esophagitis/gastritis. Continue PPI twice daily Status post colonoscopy that showed significant colitis with a pattern concerning for Crohn's disease. S/p biopsy. Discussed with GI: Keep the patient on prednisone 40 mg daily. Follow-up labs and follow-up with GI shortly after discharge Monitor H&H Continue IV ceftriaxone
[2024-06-16] MEDS: SODIUM CHLORIDE 0.9% 1000 ML 1,000 ML 75 ML IV (14:47)
--- NOTE | 2024-06-16 19:07 | PC.NURSE ---
Reevaluated the decision to hold off on iron infusion with pt and family this morning. Per pts father and pt would like to receive the iron infusion at this time. this information was passed on to receiving nurse [facility] RN to cont with care.
[2024-06-16] MEDS: PANTOPRAZOLE 40 MG TABLET PO (20:53)
[2024-06-17] VITALS: BP 107/57; PULSE 86; RESP 16; TEMP 36.6; O2SAT 99
[2024-06-17] MEDS: SODIUM CHLORIDE 0.9% 1000 ML 1,000 ML 75 ML IV (03:47)
[2024-06-17 04:00] VITALS: BP 113/66; PULSE 90; RESP 18; TEMP 36.6; O2SAT 99
[2024-06-17] MEDS: ACETAMINOPHEN 325 MG TABLET 650 MG PO (05:32)
[2024-06-17] MEDS: LEVOTHYROXINE SODIUM 112 MCG TABLET PO (05:32)
[2024-06-17 06:22] LABS: Basophils # (Auto) 0.1 Thou/mm3 (0.0-0.2); Basophils % (Auto) 1 % (0-2.5); Eosinophils # (Auto) 0.2 Thou/mm3 (0.0-0.5); Eosinophils % (Auto) 2 % (0-10); Hematocrit 23.9 % (36.0-46.0); Immature Granulocytes % (Auto) 1 % (0-0); Immature Granulocytes Auto 0.15 Thou/mm3 (0.00-0.00); Lymphocytes # (Auto) 2.5 Thou/mm3 (1.0-5.0); Lymphocytes % (Auto) 23 % (10-50); Mean Corpuscular HGB Conc 31.4 g/dl (31.0-37.0); Mean Corpuscular Hemoglobin 22.3 pg (25.0-35.0); Mean Corpuscular Volume 71 fL (80-100); Monocytes % (Auto) 9 % (0-12); Neutrophils # (Auto) 7.1 Thou/mm3 (1.8-7.7); Neutrophils % (Auto) 64 % (37-80); Nucleated Red Blood Cell % 0 /100 WBC (0); Platelet Count 463 Thou/mm3 (140-440); RDW Standard Deviation 46.9 fL (36.4-46.3); Red Blood Count 3.37 Miln/mm3 (4.00-5.20)
[2024-06-17 06:41] LABS: Hemoglobin 7.5 g/dL (12.0-16.0)
[2024-06-17 07:10] LABS: Alanine Aminotransferase < 7 U/L (10-49); Albumin, Serum 3.2 gm/dL (3.5-5.0); Albumin/Globulin Ratio 1.2 (1.2-2.2); Alkaline Phosphatase 55 U/L (46-116); Anion Gap 9 (7-16); Aspartate Amino Transferase < 8 U/L (0-34); BUN/Creatinine Ratio 6 Ratio (12-20); Bilirubin,Total 0.2 mg/dL (0.3-1.2); Blood Urea Nitrogen < 5 mg/dL (9-23); Calcium (Corrected) 8.6 mg/dL (8.5-10.1); Carbon Dioxide 25.8 mMol/L (20.0-31.0); Chloride 110 mMol/L (98-107); Creatinine (Component) 0.8 mg/dL (0.6-1.3); Estimated Creatinine Clearance 107.6 mL/min (>60); Globulin 2.6 gm/dL (2.3-3.5); Glucose 105 mg/dL (74-106); Magnesium 1.8 mg/dL (1.6-2.6); Osmolality,Calculated 285 (275-295); Phosphorous 2.9 mg/dL (2.4-5.1); Potassium 4.2 mMol/L (3.4-5.1); Sodium 145 mMol/L (136-145); Total Protein 5.8 gm/dL (5.7-8.2); eGFR > 60 See Note
[2024-06-17 07:41] VITALS: BP 99/72; PULSE 72; RESP 18; TEMP 36.7; O2SAT 99
[2024-06-17 08:22] LABS: Clostridium Difficile PCR Negative (Negative)
[2024-06-17] MEDS: PANTOPRAZOLE 40 MG TABLET PO (08:54)
[2024-06-17] MEDS: predniSONE 20 MG TABLET 40 MG PO (08:55)
[2024-06-17] MEDS: cefTRIAXone/D5w 1gm IV premix 1 GM/50 ML BAG IV (08:55)
--- NOTE | 2024-06-17 11:10 | PC.SS ---
SS follow up note; Stool Cultures pending. Advancing diet. Patient will discharge home once medically cleared.
[2024-06-17 11:15] VITALS: BP 112/66; PULSE 81; RESP 18; TEMP 36.3; O2SAT 100
[2024-06-17] MEDS: FERRIC SOD GLUC INJ 125 MG in SODIUM CHLORIDE 0.9% 100 ML 110 MG IV (13:36)
[2024-06-17 15:25] VITALS: PULSE 85; RESP 18; RESP 98
[2024-06-17 16:00] VITALS: BP 114/67; PULSE 87; RESP 18; TEMP 36.3; O2SAT 95
--- NOTE | 2024-06-17 17:16 | PD.RESDS ---
Planned Discharge Date 06/17/24 DS: Providers Provider Date of admission: 06/14/24 16:29 Primary care physician: Elisa Wood NP Admitting Provider: Onelia Davis MD Attending Provider on Admission: Rodney Vinson MD Consults: 06/14/24 15:49 Consult to Gastroenterology Stat Comment: Consulting Provider: Ismael Zapata 06/16/24 09:57 Referral Nutritional Services Stat Comment: malnutrition Attending Provider on DC: Leonila Macario MD Discharging Provider: Leonila Macario MD DS: Diagnosis Problem List Completed Was Problem List Reviewed/Reconciled?: Yes Hospital Course Hospital Course Hospital course: Ms. Bullock is a 18-year-old female with past medical history significant for hypothyroidism who presented to the ED wtih abdominal pain and bloody diarrhea and admitted to the hospital on 06/14/2024 for diffuse colitis with hematochezia. GI was consulted, and recommended to complete both EGD and colonoscopy. EGD showed some gastritis with erythema, but no bleeding. Colonoscopy showed diffuse inflammation in the sigmoid colon, rectosigmoid colon, transverse colon, descending colon, and ascending colon. At this time, patient would benefit from further GI workup pending f/u with pathology report from colonscopy, calprotectin, H.pylori, and Quantiferon test. Patient states her fatigue, abdominal pain, and bloody diarrhea are improving. Patient also given IV iron x 1 during hospitalization, and resumed patient's levothyroxine at 112 mcg due to elevation of TSH noted in labs. Pt seen and examined at bedside. Pt is medically cleared to be discharged today with the following instructions: Please take your new medications as mentioned: Prednisone 40mg once daily, Protonix twice daily, and Ferrous Sulfate every other day Please take your Levothyroxine 112mcg in the morning before any of your other medications or food Please see your PCP within 1-[address]. [address] Vera, GI specialist to follow up our pathology results and stool studies You will need a repeat EGD to be performed in 8 weeks with your GI doctor. Hospital discharge diagnoses treated during hospital stay: #Diffuse colitis #Hematochezia #IBD? #Gastritis #Iron deficiency anemia #UTI #Hypothyroidism Patient's plan and care discussed with my attending, Dr. Alisson Macario MD PGY-2 Status at Discharge Cognitive/behavioral status at discharge: stable Functional status at discharge: independent ambulation Overall status at discharge: patient is progressing back to baseline Time Spent with Patient Time attestation: Total time spent providing and/or coordinating discharge services: 35 Time spent: Greater than 30 minutes Quality: Stroke Pt Provided Written Stroke Discharge Instructions: No Exam Vital Signs Temp Pulse Resp BP Pulse Ox O2 Del Method 97.4 F 85 18 112/66 100 Room Air 06/17/24 11:15 06/17/24 15:25 06/17/24 15:06/17/24 11:15 06/17/24 11:15 06/17/24 04:00 Narrative Exam General Appearance: Pt in NAD laying comfortably in bed. HEENT: NC/AT, no scleral icterus, no conjunctival pallor, MMM Lungs: CTAB, no wheezes or crackles appreciated CVS: RRR, S1/S2 heard, no murmurs or rubs appreciated ABD: Soft, mild tenderness to left lower quadrant, non-distended, BS + in all 4 quadrants EXT: no deformity/edema/lesions/cyanosis/clubbing, radial pulses 2+ BL, DP pulses 2 + BL SKIN: Skin exam normal without any rashes. Neuro: A&O x 3. No gross neurological deficits. Motor and sensory grossly intact in B/L UL and LL. Psych: Appropriate mood and affect Discharge Plan Plan Patient Disposition: HOME (Self Care) Disposition Comment: Stable Prescriptions/Referrals Prescriptions/Med Rec: New pantoprazole 40 mg Tablet,Delayed Release (Dr/Ec) 40 mg PO BID 30 Days Qty: 60 0RF ferrous sulfate 325 mg (65 mg iron) Tablet,Delayed Release (Dr/Ec) 325 mg PO QOD 30 Days Qty: 15 0RF levothyroxine 112 mcg Tablet 112 mcg PO ACBR 30 Days Qty: 30 0RF prednisone 20 mg tablet 40 mg PO QDAY 30 Days Qty: 60 0RF Referrals: Elisa Wood NP [Primary Care Provider] - Patient/Caregiver Discharge Instructions Other Discharge Activity Instructions:: Please take your new medications as mentioned: Prednisone 40mg once daily, Protonix twice daily, and Ferrous Sulfate every other day Please take your Levothyroxine 112mcg in the morning before any of your other medications or food Please see your PCP within 1-[address] Vera, GI specialist to follow up our pathology results and stool studies You will need a repeat EGD to be performed in 8 weeks with your GI doctor. Education Materials: Bleeding Gastrointestinal, Anemia Print Language: Icelandic Stand Alone Forms: Evelyn Award Info., Patient Portal Info Letter Discharge Order Discharge Orders: Discharge (Routine); Ordered 06/17/24 Ordered By: Leonila Macario Quality Discharge Quality Measures VTE prophylaxis MD Attestestation MD Attestation I reviewed labs, imaging, EKG, home medications and prior available records. Face to face evaluation was performed by me. I have personally examined the patient and discussed assessment and plan with the IM team. I reviewed the resident note and agree with the plan with exceptions as below. Lower GI bleed Possible Crohn's disease Acute esophagitis/gastritis Colitis Acute UTI Status post EGD that showed esophagitis/gastritis. Continue PPI twice daily Status post colonoscopy that showed significant colitis with a pattern concerning for Crohn's disease. S/p biopsy. Discussed with GI: Keep the patient on prednisone 40 mg daily. Follow-up labs and follow-up with GI shortly after discharge Monitor H&H Prescribed p.o. ferrous sulfate Discussed chron's disease diet. Discussed with dietitian who provided further education Time spent is 40 minutes. More than 50% of the time was spent on patient education and coordination of care.
--- NOTE | 2024-06-17 18:01 | PC.NURSE ---
Verified with Dr. Macario in regards to pts dc. Per MD cont with dc after the stool collection this evening pt clear to dc and follow up with [facility] as reviewed with pt at bedside.
--- NOTE | 2024-06-17 18:20 | PC.NURSE ---
Discharge information reviewed with pt father mother and daughter at bedside
[2024-06-20 07:03] LABS: Hepatitis B Virus DNA* NOT DETECTED
[2024-06-20 07:27] LABS: Hepatitis B DNA PCR NOT DETECTED Log IU/mL
== END 2024-06-17 18:25 | disposition home or self-care (01) | DRG 378 ==
LOC: SERX 15:53 → SERHOLD 16:44 → S3SX 19:03
PROVIDERS: Internal Medicine Gastroenterology; Nurse Practitioner Primary Care; Admitting Provider Internal Medicine; Emergency Provider Emergency Medicine; PCP Nurse Practitioner Family; Visit Provider Student in an Organized Health Care Education/Training Program
PROC: 0DJD8ZZ Inspection of Lower Intestinal Tract, Via Natural or Artificial Opening Endoscopic (ICD-10-PCS; CPT 45378; principal; 2024-06-15 15:45)
PROC: (CPT 43239; 2024-06-15 15:45)
DX: K29.71 Gastritis, unspecified, with bleeding (principal); N39.0 Urinary tract infection, site not specified; K52.9 Noninfective gastroenteritis and colitis, unspecified; E03.9 Hypothyroidism, unspecified; K44.9 Diaphragmatic hernia without obstruction or gangrene; K59.09 Other constipation; R63.4 Abnormal weight loss; D50.9 Iron deficiency anemia, unspecified; K20.91 Esophagitis, unspecified with bleeding; Z79.890 Hormone replacement therapy
CPT/HCPCS: 36415; 74177; 80053; 80074; 81001; 81025; 82728; 83540; 83550; 83605; 83690; 83735; 83993; 84100; 84134; 84145; 84443; 85014; 85018; 85025; 85610; 85652; 86140; 86480; 86703; 87015; 87040; 87045; 87046; 87077; 87086; 87186; 87205; 87338; 87493; 87517; 87899; 93005; 96365; 99285; A4217; A4649; J0696; J2405; J2470; J2916; J3490; J7030; J7050; J7120; J7512; Q0162; Q9967; A9270; J1836

== ENCOUNTER → 2024-08-23 | Outpatient (CLI) | payer OTHER, SELFPAY ==
[2024-08-23 08:56] LABS: Cardiac Risk Estimate 3.1 RATIO (3.7-5.6); Cholesterol 155 mg/dL (132-200); Free T4 (Free Thyroxine) 1.46 ng/dL (0.89-1.76); HDL Cholesterol 50 mg/dL (40-60); LDL Cholesterol,Calculated 90 mg/dL (0-130); Thyroid Stimulating Hormone 0.42 uIU/mL (0.55-4.78); Triglycerides 76 mg/dL (30-150)
[2024-08-23 08:59] LABS: Vitamin D 25 Hydroxy Total 30.2 ng/mL (7.3-40.2)
== END | disposition home or self-care (01) ==
PROVIDERS: PCP Nurse Practitioner Family; Referring Provider Pediatrics Pediatric Endocrinology; Visit Provider Pediatrics Pediatric Endocrinology
DX: E55.9 Vitamin D deficiency, unspecified (principal); E03.3 Postinfectious hypothyroidism; E78.5 Hyperlipidemia, unspecified
CPT/HCPCS: 36415; 80061; 82306; 84439; 84443

== ENCOUNTER → 2024-10-18 | Outpatient (CLI) | payer OTHER, SELFPAY ==
[2024-10-18 09:54] LABS: Glucose Estimated Average 111 mg/dL (80-131); Hemoglobin A1C 5.5 % Hgb (4.8-6.0)
[2024-10-18 10:04] LABS: Iron 43 mcg/dL (50-170); Percent Iron Saturation 12 % (20-55); Total Iron Binding Capacity 351 mcg/dL (250-425); Unsaturated Iron Binding 308 (225-295)
[2024-10-18 10:15] LABS: Alanine Aminotransferase 7 U/L (10-49); Albumin, Serum 4.3 gm/dL (3.5-5.0); Albumin/Globulin Ratio 2.0 (1.2-2.2); Alkaline Phosphatase 50 U/L (46-116); Anion Gap 11 (7-16); Aspartate Amino Transferase 13 U/L (0-34); BUN/Creatinine Ratio 11 Ratio (12-20); Bilirubin,Total 0.9 mg/dL (0.3-1.2); Blood Urea Nitrogen 9 mg/dL (9-23); Calcium 9.9 mg/dL (8.3-10.6); Calcium (Corrected) 9.9 mg/dL (8.5-10.1); Carbon Dioxide 24.1 mMol/L (20.0-31.0); Chloride 107 mMol/L (98-107); Creatinine (Component) 0.8 mg/dL (0.6-1.3); Free T4 (Free Thyroxine) 1.42 ng/dL (0.89-1.76); Globulin 2.2 gm/dL (2.3-3.5); Glucose 92 mg/dL (74-106); Osmolality,Calculated 281 (275-295); Potassium 4.2 mMol/L (3.4-5.1); Sodium 142 mMol/L (136-145); Thyroid Stimulating Hormone 0.06 uIU/mL (0.55-4.78); Total Protein 6.5 gm/dL (5.7-8.2); eGFR > 60 See Note
[2024-10-24 09:09] LABS: T3, Reverse, LC/MS/MS* 14 ng/dL (8-25)
== END | disposition home or self-care (01) ==
LOC: COPL 08:45
PROVIDERS: PCP Nurse Practitioner Family; Referring Provider Nurse Practitioner Family; Visit Provider Pediatrics Pediatric Endocrinology
DX: E03.3 Postinfectious hypothyroidism (principal); K51.819 Other ulcerative colitis with unspecified complications
CPT/HCPCS: 36415; 80053; 83036; 83540; 83550; 84439; 84443; 84482

== ENCOUNTER 2024-11-01 07:25 | Day surgery (SDC) | payer OTHER, SELFPAY ==
[2024-10-31 12:47] LABS: HCG Qualitative,Urine Negative
[2024-10-31 15:16] VITALS: BMI 27.4
[2024-11-01] VITALS (11 sets, daily range): BP systolic 85–112; BP diastolic 65–83; PULSE 65–77; RESP 16–19; TEMP 36.3–36.7; O2SAT 99–100; BMI 29.4
[2024-11-01] MEDS: fentaNYL CIT INJ 50 mCg/ML AMP 2ML (ASD USE ONLY) IVP (09:40)
[2024-11-01] MEDS: MIDAZOLAM INJ 1 MG/ML VIAL 2 ML (ASD USE ONLY) 2 MG IVP (09:40)
[2024-11-01] MEDS: RINGERS LACTATED 500 ML 500 ML 20 ML IV (09:40)
== END 2024-11-01 10:37 | disposition home or self-care (01) ==
PROVIDERS: Anesthesiology; PCP Nurse Practitioner Family; Referring Provider Internal Medicine Gastroenterology; Visit Provider Internal Medicine Gastroenterology
PROC: 0DBE8ZX Excision of Large Intestine, Via Natural or Artificial Opening Endoscopic, Diagnostic (ICD-10-PCS; CPT 45380; principal; 2024-11-01 07:30)
DX: K64.9 Unspecified hemorrhoids (principal); E66.9 Obesity, unspecified; E03.9 Hypothyroidism, unspecified; Z68.29 Body mass index [BMI] 29.0-29.9, adult
CPT/HCPCS: 45380; 81025; A4217; A4649; J1200; J2250; J3010; J7120

== ENCOUNTER → 2024-11-28 | Outpatient (CLI) | payer OTHER, SELFPAY ==
[2024-11-28 08:52] LABS: Thyroid Stimulating Hormone 0.28 uIU/mL (0.55-4.78)
[2024-11-28 08:54] LABS: T4 (Thyroxine) 6.6 mcg/dL (4.5-10.9)
== END | disposition home or self-care (01) ==
LOC: COPL 07:39
PROVIDERS: PCP Family Medicine; Referring Provider Pediatrics Pediatric Endocrinology; Visit Provider Pediatrics Pediatric Endocrinology
DX: E03.3 Postinfectious hypothyroidism (principal)
CPT/HCPCS: 36415; 84436; 84443

== ENCOUNTER → 2025-01-31 | Outpatient (CLI) | payer OTHER, SELFPAY ==
[2025-01-31 09:16] LABS: Thyroid Stimulating Hormone 6.36 uIU/mL (0.55-4.78)
[2025-01-31 09:17] LABS: Vitamin D 25 Hydroxy Total 22.1 ng/mL (7.3-40.2)
== END | disposition home or self-care (01) ==
LOC: COPL 08:00
PROVIDERS: PCP Family Medicine; Referring Provider Pediatrics Pediatric Endocrinology; Visit Provider Pediatrics Pediatric Endocrinology
DX: E55.9 Vitamin D deficiency, unspecified (principal); E03.3 Postinfectious hypothyroidism
CPT/HCPCS: 36415; 82306; 84443